=== PATIENT | female | born 1970 | race Asian ===

== ENCOUNTER 2016-12-14 07:50 | Emergency (ER) | payer OTHER ==
[~2016-12-14] VITALS: Ht 162.6 cm; Wt 96.2 kg
[~2016-12-14 07:50] MED LIST: ATORVASTATIN CA40 M1 PO; GOOD SENSE ASPI81 M3 PO; METOPROLOL SUCC25 M1 PO; MULTIVITAMIN1 SGL PO; NORCO1 TA2 PO; PRO60 PO; V5 PO
[2016-12-14 09:05] LABS: BASOPHIL % 0.4 % (0-2); PLATELET COUNT 424 x10^3mcL (130-400); RED CELL DISTRIBUTION WIDTH 15.6 % (11.5-14.5)
[2016-12-14 09:11] LABS: CALCIUM 9.3 mg/dL (8.5-10.1); CARBON DIOXIDE 22.2 mmol/L (21-32); CHLORIDE SERUM 101 mmol/L (98-107); GFR1 > 60 mL/min; GLUCOSE SERUM 235 mg/dL (74-106); SODIUM SERUM 139 mmol/L (136-145)
[2016-12-14 09:15] LABS: ALBUMIN 3.6 g/dL (3.4-5.0); ALKALINE PHOSPHATASE 84 U/L (46-116); ALT/SGPT 35 U/L (14-59); AST/SGOT 28 U/L (15-37); HDL CHOLESTEROL 55 mg/dL (40-60); PHOSPHOROUS 2.6 mg/dL (2.5-4.9); TOTAL PROTEIN, SERUM 7.9 g/dL (6.4-8.2); URIC ACID 10.7 mg/dL (2.6-6.0)
[2016-12-14 09:16] LABS: CHOLESTEROL 222 mg/dL (<200)
[2016-12-14 11:33] VITALS: BP 105/57
== END 2016-12-14 11:33 | disposition home or self-care (01) ==
LOC: ED 07:50
PROVIDERS: Emergency Medicine
DX: R55 Syncope and collapse (principal); R10.32 Left lower quadrant pain; I10 Essential (primary) hypertension; E11.9 Type 2 diabetes mellitus without complications; Z79.84 Long term (current) use of oral hypoglycemic drugs
CPT/HCPCS: 83880; J1885; J7030

== ENCOUNTER → 2017-01-12 | Outpatient (CLI) | payer OTHER ==
[2017-01-12 17:10] LABS: GLUCOSE SERUM 164 mg/dL (74-106)
== END | disposition home or self-care (01) ==
LOC: LB 16:02
DX: E28.2 Polycystic ovarian syndrome (principal)
CPT/HCPCS: 82670; 82947

== ENCOUNTER → 2017-01-18 | Outpatient (CLI) | payer OTHER | END | disposition home or self-care (01) | LOC: CA 08:39 | DX: R42 Dizziness and giddiness (principal) ==

== ENCOUNTER → 2017-01-25 | Outpatient (CLI) | payer OTHER | END | disposition home or self-care (01) | LOC: LB 06:48 | DX: E28.2 Polycystic ovarian syndrome (principal) | CPT/HCPCS: 82670 ==

== ENCOUNTER → 2017-04-22 | Outpatient (CLI) | payer OTHER ==
[2017-04-22 08:45] LABS: BASOPHIL % 0.7 % (0-2)
[2017-04-22 08:52] LABS: PLATELET COUNT 403 x10^3mcL (130-400); RED CELL DISTRIBUTION WIDTH 16.6 % (11.5-14.5)
[2017-04-22 08:58] LABS: ALBUMIN 3.4 g/dL (3.4-5.0); ALKALINE PHOSPHATASE 97 U/L (46-116); ALT/SGPT 60 U/L (14-59); AST/SGOT 35 U/L (15-37); BILIRUBIN TOTAL 0.3 mg/dL (0.20-1.00); CALCIUM 8.8 mg/dL (8.5-10.1); CARBON DIOXIDE 26.7 mmol/L (21-32); CHLORIDE SERUM 101 mmol/L (98-107); CHOLESTEROL 201 mg/dL (<200); CHOLESTEROL/HDL RATIO 4.3; CREATININE SERUM 0.6 mg/dL (0.6-1.0); GFR1 > 60 mL/min; GLUCOSE SERUM 128 mg/dL (74-106); HDL CHOLESTEROL 47 mg/dL (40-60); POTASSIUM SERUM 3.5 mmol/L (3.5-5.1); SODIUM SERUM 138 mmol/L (136-145); TOTAL PROTEIN, SERUM 8.6 g/dL (6.4-8.2); TRIGLYCERIDES 221 mg/dL (<150); URIC ACID 8.9 mg/dL (2.6-6.0)
[2017-04-24 06:05] LABS: microalbumin:creatinine ratio 12.5 (0.0-30.0)
== END | disposition home or self-care (01) ==
LOC: LB 08:06
PROVIDERS: Internal Medicine
DX: Z00.00 Encounter for general adult medical examination without abnormal findings (principal)

== ENCOUNTER → 2017-06-27 | Outpatient (CLI) | payer OTHER ==
[2017-06-27 11:33] LABS: BASOPHIL % 0.6 % (0-2)
[2017-06-27 11:40] LABS: PLATELET COUNT 449 x10^3mcL (130-400); RED CELL DISTRIBUTION WIDTH 15.7 % (11.5-14.5)
[2017-06-27 11:48] LABS: ALBUMIN 3.6 g/dL (3.4-5.0); ALKALINE PHOSPHATASE 89 U/L (46-116); ALT/SGPT 43 U/L (14-59); AST/SGOT 28 U/L (15-37); BILIRUBIN DIRECT 0.09 mg/dL (0.0-0.2); BILIRUBIN TOTAL 0.51 mg/dL (0.20-1.00); CALCIUM 9.4 mg/dL (8.5-10.1); CARBON DIOXIDE 25.8 mmol/L (21-32); CHLORIDE SERUM 100 mmol/L (98-107); CHOLESTEROL 190 mg/dL (<200); CHOLESTEROL/HDL RATIO 3.6; CREATININE SERUM 0.6 mg/dL (0.6-1.0); GFR1 > 60 mL/min; GLUCOSE SERUM 108 mg/dL (74-106); HDL CHOLESTEROL 53 mg/dL (40-60); POTASSIUM SERUM 3.7 mmol/L (3.5-5.1); SODIUM SERUM 137 mmol/L (136-145); URIC ACID 7.7 mg/dL (2.6-6.0)
[2017-06-27 11:54] LABS: TOTAL PROTEIN, SERUM 8.6 g/dL (6.4-8.2); TRIGLYCERIDES 201 mg/dL (<150)
[2017-06-27 13:30] LABS: ERYTHROCYTE SED RATE 38 mm/hr (0-20)
== END | disposition home or self-care (01) ==
LOC: LB 10:17
PROVIDERS: Internal Medicine
DX: Z00.00 Encounter for general adult medical examination without abnormal findings (principal)

== ENCOUNTER → 2017-12-09 | Outpatient (CLI) | payer OTHER ==
[2017-12-09 08:47] LABS: BASOPHIL % 0.5 % (0-2); RED CELL DISTRIBUTION WIDTH 14.1 % (11.5-14.5)
[2017-12-09 08:58] LABS: PLATELET COUNT 420 x10^3mcL (130-400)
[2017-12-09 09:01] LABS: ALBUMIN 3.5 g/dL (3.4-5.0); ALKALINE PHOSPHATASE 89 U/L (46-116); ALT/SGPT 59 U/L (14-59); AST/SGOT 30 U/L (15-37); BILIRUBIN DIRECT 0.11 mg/dL (0.0-0.2); BILIRUBIN TOTAL 0.5 mg/dL (0.20-1.00); CARBON DIOXIDE 26.3 mmol/L (21-32); CHLORIDE SERUM 101 mmol/L (98-107); CHOLESTEROL 197 mg/dL (<200); CHOLESTEROL/HDL RATIO 3.9; CREATININE SERUM 0.7 mg/dL (0.6-1.0); GFR1 > 60 mL/min; GLUCOSE SERUM 162 mg/dL (74-106); HDL CHOLESTEROL 51 mg/dL (40-60); POTASSIUM SERUM 3.7 mmol/L (3.5-5.1); SODIUM SERUM 137 mmol/L (136-145); TOTAL PROTEIN, SERUM 7.9 g/dL (6.4-8.2); TRIGLYCERIDES 191 mg/dL (<150); URIC ACID 11.6 mg/dL (2.6-6.0)
[2017-12-10 09:16] LABS: microalbumin:creatinine ratio 32.3 (0.0-30.0)
== END | disposition home or self-care (01) ==
LOC: LB 07:36
PROVIDERS: Internal Medicine
DX: Z00.00 Encounter for general adult medical examination without abnormal findings (principal)

== ENCOUNTER → 2018-03-11 | Outpatient (CLI) | payer OTHER ==
[2018-03-11 08:53] LABS: ALBUMIN 3.4 g/dL (3.4-5.0); ALKALINE PHOSPHATASE 93 U/L (46-116); ALT/SGPT 72 U/L (14-59); AST/SGOT 59 U/L (15-37); BILIRUBIN DIRECT 0.12 mg/dL (0.0-0.2); CALCIUM 9.3 mg/dL (8.5-10.1); CARBON DIOXIDE 23.2 mmol/L (21-32); CHLORIDE SERUM 99 mmol/L (98-107); CHOLESTEROL 200 mg/dL (<200); CHOLESTEROL/HDL RATIO 4.2; CREATININE SERUM 0.7 mg/dL (0.6-1.0); GFR1 > 60 mL/min; GLUCOSE SERUM 154 mg/dL (74-106); HDL CHOLESTEROL 48 mg/dL (40-60); POTASSIUM SERUM 3.6 mmol/L (3.5-5.1); SODIUM SERUM 136 mmol/L (136-145); URIC ACID 10.6 mg/dL (2.6-6.0)
[2018-03-11 08:56] LABS: TRIGLYCERIDES 250 mg/dL (<150)
== END | disposition home or self-care (01) ==
LOC: LB 08:04
PROVIDERS: Internal Medicine
DX: E11.9 Type 2 diabetes mellitus without complications (principal); I10 Essential (primary) hypertension

== ENCOUNTER → 2018-03-24 | Outpatient (CLI) | payer OTHER | END | disposition home or self-care (01) | LOC: LB 08:16 | PROC: BW40ZZZ Ultrasonography of Abdomen (ICD-10-PCS; principal; 2018-03-24) | DX: R84.0 Abnormal level of enzymes in specimens from respiratory organs and thorax (principal) | CPT/HCPCS: Q0092 ==

== ENCOUNTER → 2018-08-29 | Outpatient (CLI) | payer OTHER ==
[2018-08-29 09:24] LABS: BASOPHIL % 1.2 % (0-2); PLATELET COUNT 320 x10^3mcL (130-400)
[2018-08-29 09:36] LABS: ALKALINE PHOSPHATASE 90 U/L (46-116); ALT/SGPT 64 U/L (14-59); AST/SGOT 60 U/L (15-37); BILIRUBIN DIRECT 0.15 mg/dL (0.0-0.2); BILIRUBIN TOTAL 0.59 mg/dL (0.20-1.00); CALCIUM 8.7 mg/dL (8.5-10.1); CHLORIDE SERUM 102 mmol/L (98-107); CHOLESTEROL 170 mg/dL (<200); CHOLESTEROL/HDL RATIO 3.9; CREATININE SERUM 0.7 mg/dL (0.6-1.0); GFR1 > 60 mL/min; GLUCOSE SERUM 165 mg/dL (74-106); HDL CHOLESTEROL 44 mg/dL (40-60); POTASSIUM SERUM 3.4 mmol/L (3.5-5.1); SODIUM SERUM 138 mmol/L (136-145); TOTAL PROTEIN, SERUM 7.7 g/dL (6.4-8.2); TRIGLYCERIDES 153 mg/dL (<150)
[2018-08-29 09:38] LABS: ALBUMIN 3.2 g/dL (3.4-5.0)
[2018-08-30 12:44] LABS: PROLACTIN 19.9 ng/mL (4.8-23.3)
== END | disposition home or self-care (01) ==
LOC: LB 08:56
PROVIDERS: Internal Medicine
DX: Z00.00 Encounter for general adult medical examination without abnormal findings (principal)
CPT/HCPCS: 82672; 84402; 84403

== ENCOUNTER → 2018-12-05 | Outpatient (CLI) | payer OTHER ==
[2018-12-05 10:55] LABS: ALBUMIN 3.4 g/dL (3.4-5.0); ALKALINE PHOSPHATASE 98 U/L (46-116); ALT/SGPT 73 U/L (14-59); AST/SGOT 54 U/L (15-37); BILIRUBIN TOTAL 0.5 mg/dL (0.20-1.00); CALCIUM 8.8 mg/dL (8.5-10.1); CARBON DIOXIDE 27.6 mmol/L (21-32); CHLORIDE SERUM 99 mmol/L (98-107); CREATININE SERUM 0.6 mg/dL (0.6-1.0); GFR1 > 60 mL/min; GLUCOSE SERUM 156 mg/dL (74-106); POTASSIUM SERUM 3.5 mmol/L (3.5-5.1); SODIUM SERUM 138 mmol/L (136-145); TOTAL PROTEIN, SERUM 8.2 g/dL (6.4-8.2); URIC ACID 9.7 mg/dL (2.6-6.0)
== END | disposition home or self-care (01) ==
LOC: LB 09:42
DX: E11.9 Type 2 diabetes mellitus without complications (principal)

== ENCOUNTER → 2018-12-10 | Outpatient (CLI) | payer OTHER | END | disposition home or self-care (01) | LOC: CA 08:31 | DX: R42 Dizziness and giddiness (principal); R94.31 Abnormal electrocardiogram [ECG] [EKG] ==

== ENCOUNTER 2019-02-26 08:53 | Emergency (ER) | payer OTHER ==
[~2019-02-26] VITALS: Ht 162.6 cm; Wt 95.7 kg
[2019-02-26 08:59] VITALS: BP 117/65; Ht 162.6 cm; Wt 95.7 kg
[2019-02-26 10:47] LABS: UA SPECIFIC GRAVITY <=1.005 (1.005-1.035); microscopic required? YES; urine erythrocyte 3+ (NEGATIVE)
== END 2019-02-26 11:10 | disposition home or self-care (01) ==
LOC: ED 08:53
PROVIDERS: Emergency Medicine
DX: M54.9 Dorsalgia, unspecified (principal); R07.89 Other chest pain; I10 Essential (primary) hypertension; E11.9 Type 2 diabetes mellitus without complications; Z98.890 Other specified postprocedural states; Z88.1 Allergy status to other antibiotic agents
CPT/HCPCS: J1885